=== PATIENT | male | born 2000 | race Caucasian/White ===

== ENCOUNTER 2023-01-19 06:44 | Emergency (ER) | payer OTHER ==
[~2023-01-19] VITALS: Ht 188 cm; Wt 102.3 kg
[2023-01-19] MEDS ORDERED: FLEXERIL 1010 MG/TAB PO (07:32)
[2023-01-19] MEDS ORDERED: ASPERCREME1 EACH TP (07:32)
[2023-01-19] MEDS ORDERED: NAPROSYN500 MG PO (07:32)
[2023-01-19 07:52] VITALS: BP 138/83; PULSE 74; TEMP 98.2
== END 2023-01-19 07:56 | disposition home or self-care (01) ==
LOC: COL.ER 06:44
DX: M54.50 Low back pain, unspecified (principal); G89.29 Other chronic pain; X50.1XXA Overexertion from prolonged static or awkward postures, initial encounter